=== PATIENT | female | born 1935 | race Caucasian/White ===

== ENCOUNTER 2019-12-25 16:43 | Emergency (ER) | payer OTHER, MEDICARE ==
--- OUTSIDE RECORDS SUMMARY | 2019-12-25 16:46 | XMS REPORT | Continuity of Care Document ---
:1935 Author Organization [facility] t Address [address] [place] [address] Care Team Providers Name Role Phone Unavailable Unavailable Unavailable Problems Condition Condition Condition Status Onset Resolution Last Treating Co mments Source Name Details Category Date Date Treatment Clinician Date Primary Primary Diagnosis [facility] - [facility] right knee right knee l [facility] Pain in Pain in Diagnosis [facility] Sciatica, Sciatica, Diagnosis Active [facility] right side right side Aida kes - [facility] Allergies, Adverse Reactions, Alerts This patient has no known allergies or adverse reactions. Medications Ordered Filled Start Stop Current Ordering Indication Dosage Frequency Signature Comments Components Source Medication Medication Date Date Medication? Clinician (SIG) Name Name Tramadol Tramadol 2017-07 2018- No Goyo [address] [facility] HCl HCl 0-01 10-11 Chopra as needed [facility] - 00:00: 00:00 [facility] 00 [facility] l [facility] Clinics GlipiZIDE GlipiZIDE Yes Goyo TAKE ONE [facility] Chopra (1) [facility] - TABLET(S) [facility] BY MOUTH l ONCE A Outpati DAY. ent Clinics Xarelto Xarelto Yes Goyo TAKE ONE [facility] (1) [facility] - TABLET(S) [facility] BY MOUTH l ONCE A Outpati DAY. ent Clinics Metoprolol Metoprolol Yes Goyo TAKE ONE [facility] Succinate Succinate Chopra (1) Nicki es - ER ER TABLET(S) Mem[facility] BY MOUTH l TWICE A Outpati DAY. ent Clinics Pravastatin Pravastatin Yes Goyo TAKE ONE [facility] Sodium Sodium [facility]ra (1) [facility] - TABLET(S) [facility] BY MOUTH l ONCE A Outpati DAY. ent Clinics Acetaminoph Acetaminoph Yes Goyo (Schedule [facility] en-Codeine en-Codeine Chopra III Drug) [facility] - #3 #3 TAKE ONE [facility] (1) l TABLET(S) Outpati BY MOUTH ent TWICE A Clinics DAY NEEDED FOR PAIN. Chlorthalid Chlorthalid Yes Goyo TAKE ONE [facility] one one [facility]ra (1) [facility] - TABLET(S) [facility] BY MOUTH l EVERY Outpati MORNING ent WITH FOOD. Clinics Procedures This patient has no known procedures. Encounters Start End Encounter Admission Attending Care Care Encounter Source Date/Time Date/Time Type Type Clinicians Facility Department ID 2018-04-12 2018-04-12 [facility] [id number] [facility] [address] 11:00[facility]00 11[facility]00 [facility] ent Clinics Results This patient has no known results.
--- NOTE | 2019-12-25 17:12 | RAD REPORT ---
EXAM DESCRIPTION: CT - Ct Stroke Brain Wo Cont - 12/25/2019 4:58 pm CLINICAL HISTORY: APHASIA COMPARISON: No comparisons TECHNIQUE: Axial 5 millimeter thick images of the head were obtained without IV contrast. All CT scans are performed using dose optimization technique as appropriate and may include automated exposure control or mA/KV adjustment according to patient size. FINDINGS: No intracranial hemorrhage is present. Decreased attenuation is present in the left irrigation manager al capsule and insular cortex region lateral margin of the basal ganglia. Diminished attenuation is p resent as well in the posterior limb internal capsule. No corresponding finding in the matching right side structures. Nonhemorrhagic acute CVA is suspected. No cortical edema or sulcal effacement otherwise noted. No midline shift. No extra-axial fluid collec tions. Talamantes matter-white matter differentiation is preserved.Patient has underlying atrophy and ad copy writer michael ischemic change. Visualized portions of the mastoid air cells, paranasal sinuses, and orbits are unremarkable. Findings telephoned to the emergency department 5:04 p.m. IMPRESSION: Acute nonhemorrhagic CVA changes are present in the left external capsule, lateral sirisha n of the basal ganglia and insular cortex region. Underlying atrophy and chronic ischemic change.
[2019-12-25 17:16] LABS: Absolute Lymphocytes (CBC) 1.4 K/uL (0.7-4.9); Basophils % 0.7 % (0-1.3); Lymphocytes % 12.7 % (15.3-44.8); MPV 9.3 fL (7.6-11.3); RBC Red Blood Cell Count 4.35 M/uL (3.86-4.86)
[2019-12-25 17:22] LABS: Protime INR 1.04
[2019-12-25 17:36] LABS: ALT/SGPT 16 U/L (12-78); AST/SGOT 16 U/L (15-37); Albumin 3.3 g/dL (3.4-5.0); Alkaline Phosphatase 111 U/L (45-117); BUN Blood Urea Nitrogen 8 mg/dL (7-18); Bicarbonate 27 mmol/L (21-32); Bilirubin Direct 0.2 mg/dL (0-0.2); Bilirubin Total 0.6 mg/dL (0.2-1.0); Glucose Level 142 mg/dL (74-106); Magnesium 1.8 mg/dL (1.8-2.4); Potassium 3.3 mmol/L (3.5-5.1); Protein, Total 6.9 g/dL (6.4-8.2); Sodium Level 129 mmol/L (136-145); Troponin (Emerg Dept Use Only) < 0.02 ng/mL (0.0-0.045)
--- NOTE | 2019-12-25 17:42 | ER ---
Nurse's Notes [facility] Name: Cheryl Godoy Age: 84 yrs Sex: Female : 1935 Arrival Date: 12/25/2019 Time: 16:47 Bed 3 Private MD: Diagnosis: Cerebral infarction Presentation: 12/24 16:47 Chief complaint: EMS states: STROKE ALERT, RIGHT SIDED DEFICITS, APHASIC. Coronavirus bp screen: Proceed with normal triage. Ebola Screen: No symptoms or risks identified at this time. An acute neurological deficit is present. The charge nurse has been notified. The patient has been moved to a treatment area. The patients blood glucose was checked before arriving to the hospital and was found to be normal. Initial Sepsis Screen: Does the patient meet any 2 criteria? No. Patient's initial sepsis screen is negative. Does the patient have a suspected source of infection? No. Patient's initial sepsis screen is negative. Risk Assessment: Do you want to hurt yourself or someone else? Patient reports no desire to harm self or others. Onset of symptoms was December 25, 2019 at 08:00. Care prior to arrival: IV initiated. 20 GA, in the right antecubital area, Glucose check: 169. 16:47 Method Of Arrival: EMS: [facility] bp 16:47 Acuity: MANDA 1 bp Triage Assessment: 16:50 The onset of the patients symptoms was December 25, 2019 at 08:00. General: Appears bp distressed, comfortable, obese, Behavior is calm. Pain: Denies pain. EENT: No deficits noted. Neuro: Level of Consciousness is awake, confused, Oriented to none. Neuro: Reports paresthesias in right arm and right leg. Cardiovascular: No deficits noted. Respiratory: No deficits noted. GI: No signs and/or symptoms were reported involving the gastrointestinal system. : No signs and/or symptoms were reported regarding the genitourinary system. Derm: No deficits noted. Musculoskeletal: No deficits noted. Stroke Activation: Symptom onset > 6 hours Physician: Stroke Attending; Name: ; Notified At: ; Arrived At: Physician: Chief Stroke Resident; Name: ; Notified At: ; Arrived At: Physician: Stroke Resident; Name: ; Notified At: ; Arrived At: Physician: ED Attending; Name: ; Notified At: ; Arrived At: Physician: ED Resident; Name: ; Notified At: ; Arrived At: Historical: - Allergies: 16:50 No Known Allergies; bp - Home Meds: 16:50 chlorthalidone 25 mg Oral tab 1 tab once daily [Active]; metoprolol tartrate 50 mg Oral bp tab 1 tab 2 times per day [Active]; pravastatin 20 mg Oral tab 1 tab once daily [Active]; 18:10 Xarelto 20 mg oral tab 1 tab once daily [Active]; glipizide 5 mg Oral tab 1 tab once bp daily [Active]; - PMHx: 16:50 Atrial Fib; Diabetes - NIDDM; Hypertension; bp - Immunization history:: Adult Immunizations unknown. - Social history:: Smoking status: Patient denies any tobacco usage or history of. Screenin:50 Abuse screen: Denies threats or abuse. Denies injuries from another. Nutritional bp screening: No deficits noted. Tuberculosis screening: No symptoms or risk factors identified. Fall Risk None identified. Assessment: 16:50 VAN Scoring: Arm Drift: Severe drift Visual Disturbance: Field Cut: Abnormal visual bp ledezma noted. Provider notified of +VAN scoring. RIGHT SIDED DEFICITS AND EXTINCTION Aphasia: Patient exhibits both expressive and receptive aphasia. Provider notified of +VAN scoring. Neglect: Patient is noted to be ignoring one of side of their body. Provider notified of +VAN scoring. RIGHT SIDED DEFICITS. The patient has not been NPO before screening. The patient is not alert and/or unable to follow commands. APHASIC The patient failed the bedside swallow screening. The patient will be kept NPO until cleared by Speech Therapy or Physician. Provider notified of bedside swallow screening results: Devan HURST. T-PA (Activase) Screening: Contraindications: Patient reports onset of signs and symptoms of stroke greater than 6 hours ago: Yes. 17:45 Reassessment: FAMILY AT B/S, VALUABLES HANDED TO FAMILY. PT RETURN TO [facility] FOR CTA PER NEURO'S RECOMMENDATION. 17:50 Reassessment: REPORT TO CATE CARLOS RN AT [facility], [facility] ETA 20 MIN. bp 18:10 Reassessment: PT RETURNED FROM CTA. TRANSPORT PENDING. bp 18:11 The patient is exhibiting difficulty speaking. The patient is exhibiting difficulty bp understanding words. The patient is able to swallow own secretions with no drooling or need for suction. The patient did not tolerate one teaspoon of water. Drooling, immediate coughing, gurgling, or clearing of the throat was noted. The patient did not tolerate 90mL of water. Drooling, immediate coughing, gurgling, or clearing of the throat was noted. 18:16 Reassessment: [facility] AT B/S. bp Vital Signs: 17:06 BP 144 / 103; Pulse 64; Resp 19; Temp 98; Pulse Ox 97% ; bp 17:45 BP 137 / 68; Pulse 60; Resp 16; Pulse Ox 98% ; bp 18:12 BP 135 / 54; Pulse 81; Resp 20; Pulse Ox 96% ; bp [place] Coma Score: 17:01 Eye Response: to voice(3). Verbal Response: none(1). Motor Response: obeys commands(6). jr8 Total: 10. NIH Stroke Scale Scores: 16:50 NIHSS Score: 32 bp 17:01 NIHSS Score: 20 jr8 ED Course: 16:47 Patient arrived in ED. bp 16:49 Triage completed. bp 16:50 Arm band placed on. bp 16:50 Patient has correct armband on for positive identification. Bed in low position. Call bp light in reach. Side rails up X2. 16:50 Maintain EMS IV. Dressing intact. Good blood return noted. Site clean \T\ dry. Gauge \T\ bp site: 20 G R AC. 16:51 Devan Lopez PA is [facility]. jl7 16:52 Brodie العراقي MD is Attending Physician. jr8 16:58 CT Stroke Brain w/o Contrast In Process Unspecified. EDMS 17:04 initiated a transfer with Lindy Mendez from the [facility] transfer center./ per prabha Israel they are on Stroke diversion at this time. 17:06 Stephen Wilkerson, KEE is Primary Nurse. bp 17:18 initiated a transfer with Carissa Lawler Rn from the [facility]. eb 17:23 Stroke CXR 1 View In Process Unspecified. EDMS 17:[address] Walters the neurologist communications agent for [facility] with Devan HURST for patient transfer consultation. 17:43 administrative approval given by Carissa Lawler Rn/ patient has been accepted to [facility] ER/ Bre Cruz has accepted the patient in transfer/ report to be called to [phone]. 17:52 Monique cath inserted, using sterile technique, 18 Fr., by me, balloon inflated, returned iw cloudy urine. Patient tolerated well. 18:01 CT Head Angio In Process Unspecified. EDMS 18:01 CT Neck Angio In Process Unspecified. EDMS 18:11 No provider procedures requiring assistance completed. Patient transferred, IV remains bp in place. Administered Medications: 18:05 Drug: Aspirin Suppository 300 mg Route: MT; bp 18:07 Follow up: Response: No adverse reaction bp 18:05 Drug: Rocephin 2 grams Route: IV; Rate: calculated rate; Site: right antecubital; bp 18:13 Follow up: IV Status: Completed infusion; IV Intake: 100ml bp 18:05 Drug: foLIC Acid 1 mg Route: IVPB; Site: right antecubital; bp 18:12 Follow up: IV Status: Completed infusion; IV Intake: 20ml bp 18:16 Not Given (PT JESSE): NS 0.9% 1000 ml IV at 1 bolus Per protocol; 1000 mL bolus bp Point of Care Testing: Blood Glucose: 16:50 Blood Glucose: 169 mg/dL; bp Ranges: Intake: 18:12 IV: 20ml; Total: 20ml. bp 18:13 IV: 100ml; Total: 120ml. bp Outcome: 17:42 ER care complete, transfer ordered by MD. malin 18:11 Transferred by helicopter to [facility], Transfer form completed. bp 18:11 Condition: stable 18:11 Instructed on the need for transfer. 18:20 Patient left the ED. bp NIH Stroke Scale - NIH Stroke Score Date: 12/25/2019 Time: 16:50 Total Score = 32 1a. Level of Consciousness (LOC) - 1(Not Alert) 1b. Level of Consciousness (LOC) (Year \T\ Age) - 2(Neither) 1c. LOC Commands (Open \T\ Closes Eyes/Loan Associate) - 2(Neither) 2. Best Gaze (Lateral Gaze Paresis) - 2(Forced deviation) 3. Visual Field Loss - 3(Bilateral hemianopia) 4. Facial Palsy - 1(Minor Paralysis) 5a. Left Arm: Motor (10-second hold) - 3(No effort against gravity) 5b. Right Arm: Motor (10-second hold) - 4(No movement) 6a. Left Leg: Motor (5-second hold - always test supine) - 3(No effort against gravity) 6b. Right Leg: Motor (5-second hold - always test supine) - 4(No movement) 7. Limb Ataxia (finger/nose \T\ heel/ventura - test with eyes open) - 0(Absent) 8. Sensory Loss (pinprick arms/legs/face) - 1(Mild to moderate loss) 9. Best Language: Aphasia (description/naming/reading) - 3(Mute, global aphasia) 10. Dysarthria (speech clarity - read or repeat words) - 2(Severe) 11. Extinction and Inattention (visual/tactile/auditory/spatial/personal) - 1(Present) Initials: bp NIH Stroke Scale - NIH Stroke Score Date: 12/25/2019 Time: 17:01 Total Score = 20 1a. Level of Consciousness (LOC) - 1(Not Alert) 1b. Level of Consciousness (LOC) (Year \T\ Age) - 2(Neither) 1c. LOC Commands (Open \T\ Closes Eyes/Loan Associate) - 0(Both) 2. Best Gaze (Lateral Gaze Paresis) - 0(Normal) 3. Visual Field Loss - 1(Partial hemianopia) 4. Facial Palsy - 2(Partial paralysis) 5a. Left Arm: Motor (10-second hold) - 0(No drift) 5b. Right Arm: Motor (10-second hold) - 4(No movement) 6a. Left Leg: Motor (5-second hold - always test supine) - 0(No drift) 6b. Right Leg: Motor (5-second hold - always test supine) - 4(No movement) 7. Limb Ataxia (finger/nose \T\ heel/ventura - test with eyes open) - 9(Amputation, joint fusion) - Notes: complete paralysis of right side 8. Sensory Loss (pinprick arms/legs/face) - 1(Mild to moderate loss) 9. Best Language: Aphasia (description/naming/reading) - 3(Mute, global aphasia) 10. Dysarthria (speech clarity - read or repeat words) - 2(Severe) 11. Extinction and Inattention (visual/tactile/auditory/spatial/personal) - 0(No abnormality) Initials: jr8 Signatures: Dispatcher [employer] Danay Humphreys RN RN Devan Terrell PA PA jr8 Mikey Acevedo RN RN jl7 Stephen Wilkerson RN RN Lindy Myers Corrections: (The following items were deleted from the chart) 18:10 16:50 Home Meds: aspirin 81 mg Oral chew 1 tab once daily; bp bp 18:10 16:50 Home Meds: metformin 500 mg Oral tab 1 tab three times a day; bp bp
--- NOTE | 2019-12-25 17:43 | EDPHYS ---
Physician Documentation [facility] Name: Cheryl Godoy Age: 84 yrs Sex: Female : 1935 Arrival Date: 12/25/2019 Time: 16:47 Bed 3 Private MD: ED Physician Brodie العراقي HPI: 12/24 17:01 This 84 yrs old Female presents to ER via EMS with complaints of S/S of jr8 Possible Stroke. 17:01 The patient's problem is reported as altered mental status, decreased responsiveness, a jr8 facial droop, on right, dysphasia, complete aphasia , dysphagia, unable to swallow, drooling, weakness, in the right upper extremity, in the right lower extremity. Onset: The symptoms/episode began/occurred acutely, today, at an unknown time. Last known normal via phone was 0800. The symptoms are alleviated by nothing. Severity of symptoms: At their worst the symptoms were severe. The patient has not experienced similar symptoms in the past. It is unknown whether or not the patient has recently seen a physician. Historical: - Allergies: 16:50 No Known Allergies; bp - Home Meds: 16:50 chlorthalidone 25 mg Oral tab 1 tab once daily [Active]; metoprolol tartrate 50 mg Oral bp tab 1 tab 2 times per day [Active]; pravastatin 20 mg Oral tab 1 tab once daily [Active]; 18:10 Xarelto 20 mg oral tab 1 tab once daily [Active]; glipizide 5 mg Oral tab 1 tab once bp daily [Active]; - PMHx: 16:50 Atrial Fib; Diabetes - NIDDM; Hypertension; bp - Immunization history:: Adult Immunizations unknown. - Social history:: Smoking status: Patient denies any tobacco usage or history of. ROS: 17:01 Unable to obtain ROS due to patient's speech is incomprehensible. jr8 Exam: 17:01 Cardiovascular: Regular rate and rhythm with a normal S1 and S2. No gallops, murmurs, jr8 or rubs. Normal PMI, no JVD. No pulse deficits. Respiratory: Lungs have equal breath sounds bilaterally, clear to auscultation and percussion. No rales, rhonchi or wheezes noted. No increased work of breathing, no retractions or nasal flaring. Abdomen/GI: Soft with normal bowel sounds. No distension or tympany. Skin: Warm, dry with normal turgor. Normal color with no rashes, no lesions, and no evidence of cellulitis. 17:01 Eyes: Periorbital structures: appear normal, Pupils: equal, round, and reactive to light and accomodation, Extraocular movements: intact throughout, Conjunctiva: normal, Corneas: are normal, Sclera: no appreciated abnormality, Anterior chamber: normal, Lids and lashes: appear normal. 17:01 Neuro: Orientation: Not oriented to person, place, time, situation, Mentation: responsive to voice able to follow commands, seizure activity, is not displayed by the patient, Abnormal movements: there are no abnormal movements. 17:13 Radiologist reports: left ischemic CVA present (acute in nature) jr8 17:13 ECG was reviewed by the Attending Physician. Vital Signs: 17:06 BP 144 / 103; Pulse 64; Resp 19; Temp 98; Pulse Ox 97% ; bp 17:45 BP 137 / 68; Pulse 60; Resp 16; Pulse Ox 98% ; bp 18:12 BP 135 / 54; Pulse 81; Resp 20; Pulse Ox 96% ; bp NIH Stroke Scale Scores: 16:50 NIHSS Score: 32 bp 17:01 NIHSS Score: 20 jr8 [place] Coma Score: 17:01 Eye Response: to voice(3). Verbal Response: none(1). Motor Response: obeys commands(6). jr8 Total: 10. MDM: 16:52 Patient medically screened. jr8 17:39 Data reviewed: vital signs, nurses notes, lab test result(s), EKG, radiologic studies, jr8 CT scan, plain films. Data interpreted: Pulse oximetry: on room air is 97 %. Interpretation: normal. Counseling: I had a detailed discussion with the patient and/or guardian regarding: the historical points, exam findings, and any diagnostic results supporting the discharge/admit diagnosis, lab results, radiology results, the need to transfer to another facility. Physician consultation: Consulted Stroke Fellow at [facility] Dr. Walters who accepted. [facility] is on divert for all neuro at this time . 12/24 16:53 Order name: Hepatic Function; Complete Time: 17:42 jr8 12/24 16:53 Order name: Troponin (emerg Dept Use Only); Complete Time: 17:42 jr8 14 16:53 Order name: Magnesium; Complete Time: 17:42 12/24 16:53 Order name: Basic Metabolic Panel; Complete Time: 17:42 12/24 16:53 Order name: CBC with Diff; Complete Time: 17:35 12/24 16:53 Order name: Protime (+inr); Complete Time: 17:35 12/24 16:53 Order name: Ptt, Activated; Complete Time: 17:35 12/24 16:53 Order name: CT Stroke Brain w/o Contrast; Complete Time: 17:20 12/24 16:53 Order name: Stroke CXR 1 View; Complete Time: 17:53 12/24 17:42 Order name: CT Head Angio [facility] 12/24 17:42 Order name: CT Neck Angio 12/24 17:46 Order name: Urine Dipstick--Ancillary (enter results) 12/24 16:53 Order name: EKG; Complete Time: 16:54 12/24 16:53 Order name: Accucheck; Complete Time: 17:07 12/24 16:53 Order name: Cardiac monitoring; Complete Time: 17:12/24 16:53 Order name: EKG - Nurse/Tech; Complete Time: 17:12/24 16:53 Order name: IV Saline Lock; Complete Time: 17:12/24 16:53 Order name: Labs collected and sent; Complete Time: 17:12/24 16:53 Order name: NPO; Complete Time: 17:12/24 16:53 Order name: O2 Per Protocol; Complete Time: 17:12/24 16:53 Order name: O2 Sat Monitoring; Complete Time: 17:12/24 16:53 Order name: Stroke Swallow Screen; Complete Time: 17: EC:13 Rate is 71 beats/min. Rhythm is regular, Sinus Rhythm with Occasional PVCs. QRS [place] is jr8 Normal. [place] interval is normal at 192 msec. QRS interval is normal at 80 msec. QT interval is normal at 469 msec. No Q waves. T waves are Normal. No ST changes noted. Clinical impression: No evidence of ischemia. Interpreted by me. Reviewed by me. Administered Medications: 18:05 Drug: Aspirin Suppository 300 mg Route: AZ; bp 18:07 Follow up: Response: No adverse reaction bp 18:05 Drug: Rocephin 2 grams Route: IV; Rate: calculated rate; Site: right antecubital; bp 18:13 Follow up: IV Status: Completed infusion; IV Intake: 100ml bp 18:05 Drug: foLIC Acid 1 mg Route: IVPB; Site: right antecubital; bp 18:12 Follow up: IV Status: Completed infusion; IV Intake: 20ml bp 18:16 Not Given (PT JESSE): NS 0.9% 1000 ml IV at 1 bolus Per protocol; 1000 mL bolus bp Point of Care Testing: Blood Glucose: 16:50 Blood Glucose: 169 mg/dL; bp Ranges: Critical Glucose Levels:Adult <50 mg/dl or >400 mg/dl <40 mg/dl or >180 mg/dl Disposition: 12/25 11:29 Co-signature as Attending Physician, Brodie العراقي MD I agree with the assessment and carol plan of care. Disposition: 12/25/19 17:42 Transfer ordered to [facility]. Diagnosis is Cerebral infarction. - Reason for transfer: Higher level of care. - Accepting physician is Dr. Walters. - Condition is Serious. - Problem is new. - Symptoms are unchanged. NIH Stroke Scale - NIH Stroke Score Date: 12/25/2019 Time: 16:50 Total Score = 32 1a. Level of Consciousness (LOC) - 1(Not Alert) 1b. Level of Consciousness (LOC) (Year \T\ Age) - 2(Neither) 1c. LOC Commands (Open \T\ Closes Eyes/Supervisor Lump Room) - 2(Neither) 2. Best Gaze (Lateral Gaze Paresis) - 2(Forced deviation) 3. Visual Field Loss - 3(Bilateral hemianopia) 4. Facial Palsy - 1(Minor Paralysis) 5a. Left Arm: Motor (10-second hold) - 3(No effort against gravity) 5b. Right Arm: Motor (10-second hold) - 4(No movement) 6a. Left Leg: Motor (5-second hold - always test supine) - 3(No effort against gravity) 6b. Right Leg: Motor (5-second hold - always test supine) - 4(No movement) 7. Limb Ataxia (finger/nose \T\ heel/ventura - test with eyes open) - 0(Absent) 8. Sensory Loss (pinprick arms/legs/face) - 1(Mild to moderate loss) 9. Best Language: Aphasia (description/naming/reading) - 3(Mute, global aphasia) 10. Dysarthria (speech clarity - read or repeat words) - 2(Severe) 11. Extinction and Inattention (visual/tactile/auditory/spatial/personal) - 1(Present) Initials: bp NIH Stroke Scale - NIH Stroke Score Date: 12/25/2019 Time: 17:01 Total Score = 20 1a. Level of Consciousness (LOC) - 1(Not Alert) 1b. Level of Consciousness (LOC) (Year \T\ Age) - 2(Neither) 1c. LOC Commands (Open \T\ Closes Eyes/Supervisor Lump Room) - 0(Both) 2. Best Gaze (Lateral Gaze Paresis) - 0(Normal) 3. Visual Field Loss - 1(Partial hemianopia) 4. Facial Palsy - 2(Partial paralysis) 5a. Left Arm: Motor (10-second hold) - 0(No drift) 5b. Right Arm: Motor (10-second hold) - 4(No movement) 6a. Left Leg: Motor (5-second hold - always test supine) - 0(No drift) 6b. Right Leg: Motor (5-second hold - always test supine) - 4(No movement) 7. Limb Ataxia (finger/nose \T\ heel/ventura - test with eyes open) - 9(Amputation, joint fusion) - Notes: complete paralysis of right side 8. Sensory Loss (pinprick arms/legs/face) - 1(Mild to moderate loss) 9. Best Language: Aphasia (description/naming/reading) - 3(Mute, global aphasia) 10. Dysarthria (speech clarity - read or repeat words) - 2(Severe) 11. Extinction and Inattention (visual/tactile/auditory/spatial/personal) - 0(No abnormality) Initials: jrEben Signatures: Dispatcher [employer] EDBrodie Han MD MD cha Roszak, Josh, PA PA jrStephen Gallegos, RN RN bp Corrections: (The following items were deleted from the chart) 12/24 18:10 16:50 Home Meds: aspirin 81 mg Oral chew 1 tab once daily; bp bp 18:10 16:50 Home Meds: metformin 500 mg Oral tab 1 tab three times a day; bp bp 18:20 17:42 12/25/2019 17:42 Transfer ordered to [facility]. Diagnosis bp is Cerebral infarction. Reason for transfer: Higher level of care. Accepting physician is Dr. Walters. Condition is Serious. Problem is new. Symptoms are unchanged. jr8
--- NOTE | 2019-12-25 17:51 | RAD REPORT ---
EXAM DESCRIPTION: RAD - Chest Single View - 12/25/2019 5:23 pm CLINICAL HISTORY: cva, Stroke protocol chest film COMPARISON: Portable July 2017 TECHNIQUE: AP portable chest image was obtained 12/25/2019 5:23 pm . FINDINGS: Lung volumes are low. Patient is rotated significantly distorting the cardiomediastinal si lhouette. No peripheral mass or consolidation. Heart size and vasculature are mildly prominent believ ed to be the affects of shallow inspiration portable imaging. A mild failure or volume overload is no t excluded. Trachea is midline. No measurable pleural effusion and no pneumothorax. No acute bony abn ormality seen. No acute aortic findings suspected. IMPRESSION: Limited portable study without peripheral mass or consolidation. Heart, vasculature and lung markings are accentuated by shallow inspiration. This potentially masks m ild failure or volume overload.
[2019-12-25] MEDS ORDERED: NA CHLORIDE 0.9% 250 ML ONE (18:07)
[2019-12-25] MEDS ORDERED: ASPIRIN 600 MG/SUPP PR ONE (18:07)
[2019-12-25] MEDS ORDERED: FOLIC ACID 5 MG/ML VIAL ONE (18:08)
[2019-12-25] MEDS ORDERED: CEFTRIAXONE/SWI 1gm 2 GM/20 ML SYR ONE (18:08)
[2019-12-25 18:39] VITALS: TEMP 98
[2019-12-25 18:41] VITALS: BP 135/54; O2SAT 96
[2019-12-25 18:44] LABS: Urine Blood TRACE (NEG); Urine Glucose NEGATIVE (NEG); Urine Protein NEGATIVE (NEG)
--- NOTE | 2019-12-25 18:58 | RAD REPORT ---
EXAM DESCRIPTION: CT - Head angio - 12/25/2019 6:00 pm CLINICAL HISTORY: APHASIA, acute CVA, abnormal CT head TECHNIQUE: During dynamic enhancement using nonionic IV contrast, axial 1 millimeter thick images of the head were obtained. Sagittal and axial reconstruction images were generated using MIP technique and reviewed. All CT scans are performed using dose optimization technique as appropriate and may include automated exposure control or mA/KV adjustment according to patient size. COMPARISON: CT head same date FINDINGS: No aneurysm or vascular malformation identified. Major venous sinuses are patent. Vertebral arteries are codominant. No basilar or distal vertebral artery abnormality. No significant finding of the posterior artery distributions. Anterior communicating artery is present. No significa nt anterior cerebral abnormality. Right middle cerebral artery is unremarkable. There is acute truncation of the left middle cerebral artery at the M1- M2 junction. There is loss of all or nearly all of the left middle cerebral artery branches. There are small collateralized branch es identifiable. 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
--- NOTE | 2019-12-25 19:00 | RAD REPORT ---
EXAM DESCRIPTION: CT - Neck Angio - 12/25/2019 6:00 pm CLINICAL HISTORY: aphasia TECHNIQUE: During dynamic enhancement using nonionic IV contrast, axial 2 mm thick images of the nec k were obtained. Sagittal and axial reconstruction images were generated using MIP technique and revi ewed. All CT scans are performed using dose optimization technique as appropriate and may include automated exposure control or mA/KV adjustment according to patient size. COMPARISON: CT head same date FINDINGS: No aneurysm or vascular malformation identified. No carotid or vertebral dissection. Aortic arch is not fully visualized. Vertebral artery origins are normal. Right common iliac artery o rigin normal as well left common carotid origin partially visualized. No stenosis, vasculitis or othe r significant carotid artery finding. No focal abnormality of either vertebral artery. Basilar artery is normal. IMPRESSION: Negative CT angio neck examination.
== END 2019-12-25 18:20 | disposition short-term general hospital (02) ==
LOC: ER 16:43
DX: I63.9 Cerebral infarction, unspecified (principal); I10 Essential (primary) hypertension; R29.732 NIHSS score 32; E11.9 Type 2 diabetes mellitus without complications; I48.91 Unspecified atrial fibrillation; Z79.01 Long term (current) use of anticoagulants
CPT/HCPCS: 93005; 85025; 80048; 36415; 83735; 85610; 80076; 85730; 81003; 84484; 70496; 70498; 70450; 71045; 51702; 96375; 96374; 99291; Q9967; J0696; J7030